=== PATIENT | female | born 1990 | race Caucasian/White ===

== ENCOUNTER 2017-03-10 10:42 | Emergency (ER) | payer OTHER ==
[~2017-03-10] VITALS: Ht 157.5 cm; Wt 86.7 kg
[2017-03-10 13:11] LABS: CALCIUM 8.6 mg/dL (8.5-10.1); CARBON DIOXIDE 29.5 mmol/L (21-32); CHLORIDE SERUM 105 mmol/L (98-107); CREATININE SERUM 0.6 mg/dL (0.6-1.0); GFR1 > 60 mL/min; GLUCOSE SERUM 92 mg/dL (74-106); POTASSIUM SERUM 4.1 mmol/L (3.5-5.1); SODIUM SERUM 143 mmol/L (136-145)
[2017-03-10 13:15] LABS: BASOPHIL % 0.4 % (0-2); PLATELET COUNT 280 x10^3mcL (130-400); RED CELL DISTRIBUTION WIDTH 13.6 % (11.5-14.5)
[2017-03-10 13:16] LABS: ALBUMIN 3.5 g/dL (3.4-5.0); ALKALINE PHOSPHATASE 122 U/L (46-116); ALT/SGPT 25 U/L (14-59); AMYLASE 54 U/L (25-115); AST/SGOT 14 U/L (15-37); BILIRUBIN TOTAL 0.3 mg/dL (0.20-1.00); LIPASE 130 IU/L (73-393); TOTAL PROTEIN, SERUM 7.5 g/dL (6.4-8.2)
[2017-03-10 13:29] LABS: UA SPECIFIC GRAVITY 1.025 (1.005-1.035); microscopic required? YES; urine erythrocyte TRACE (NEGATIVE)
[2017-03-10 15:32] VITALS: BP 121/79
== END 2017-03-10 15:32 | disposition home or self-care (01) ==
LOC: ED 10:42
PROVIDERS: Emergency Medicine
DX: R10.11 Right upper quadrant pain (principal); R11.10 Vomiting, unspecified; R19.7 Diarrhea, unspecified; E87.6 Hypokalemia; G43.909 Migraine, unspecified, not intractable, without status migrainosus
CPT/HCPCS: J1885; J2405; Q0092